=== PATIENT | female | born 1980 | race Caucasian/White ===

== ENCOUNTER → 2018-02-16 | Outpatient (CLI) | payer OTHER ==
[~2018-02-16] MED LIST: TIZA2CAP7 PO
== END ==
LOC: LAB 13:27
PROVIDERS: ATTEND Student in an Organized Health Care Education/Training Program
DX: R53.83 Other fatigue (principal)
CPT/HCPCS: 36415; 84443

== ENCOUNTER → 2018-04-09 | Outpatient (CLI) | payer OTHER ==
[~2018-04-09] MED LIST changes: +NORE-7 PO
== END ==
LOC: LAB 10:21
PROVIDERS: ATTEND Psychiatry & Neurology Neurology
DX: R20.8 Other disturbances of skin sensation (principal); R53.82 Chronic fatigue, unspecified
CPT/HCPCS: 36415; 82306; 82607; 83036; 84436; 84439; 84443; 84480; 84481

== ENCOUNTER → 2018-04-12 | Outpatient (CLI) | payer OTHER | LOC: RESP 15:06 | PROVIDERS: ATTEND Psychiatry & Neurology Neurology | DX: G47.30 Sleep apnea, unspecified (principal) ==

== ENCOUNTER → 2018-05-12 | Outpatient (CLI) | payer OTHER ==
[~2018-05-12] MED LIST changes: +FLU60VIA41 IM
== END ==
LOC: LAB 10:25
PROVIDERS: ATTEND Student in an Organized Health Care Education/Training Program
DX: N83.9 Noninflammatory disorder of ovary, fallopian tube and broad ligament, unspecified (principal)
CPT/HCPCS: 36415; 86304

== ENCOUNTER 2018-07-21 00:34 | Observation (INO) | payer OTHER ==
[~2018-07-21] VITALS: Ht 167.6 cm; Wt 61.7 kg
[2018-07-21] VITALS (14 sets, daily range): BP systolic 109–127; BP diastolic 71–89
[~2018-07-21 00:34] MED LIST changes: +CHOL10005 PO; +DICL-190 PO; +DIPH-740 PO
[2018-07-21] MEDS ORDERED: NORMOSOL R SOLN(*) 1000 ML BAG 1,000 ML IV PRN (06:30)
[2018-07-21] MEDS ORDERED: FAMOTIDINE 20 MG TAB PO ONE (06:30)
[2018-07-21] MEDS ORDERED: MIDAZOLAM 2 MG/2 ML VIAL IVP PRN (06:30)
[2018-07-21] MEDS ORDERED: LIDOCAINE/SOD BICARB 8.4% SYR ID ONE (06:30)
[2018-07-21] MEDS ORDERED: ceFAZolin(*) 1 GM VIAL 1 GM in NS(*) 0.9% 100 ML ADDVANT BAG 100 ML IVPB ONE (08:50)
[2018-07-21 09:02] LABS: PLATELET COUNT, AUTOMATED 259 K/uL (150-450)
[2018-07-21] MEDS ORDERED: BUPIV/EPI 0.25% 1:200,000 50ML INFIL ONE (09:32)
[2018-07-21] MEDS ORDERED: ROCURONIUM BROM 10 MG/ML 10 ML ONE (09:33)
[2018-07-21] MEDS ORDERED: KETOROLAC 30 MG/ML VIAL ONE (09:33)
[2018-07-21] MEDS ORDERED: ONDANSETRON 4 MG/2 ML VIAL ONE (09:33)
[2018-07-21] MEDS ORDERED: PROPOFOL EMUL(*) 10MG/ML 20 ML 40 ML ONE (09:33)
[2018-07-21] MEDS ORDERED: DEXAMETHASONE SOD PHOS 10MG/ML ONE (09:33)
--- NOTE | 2018-07-21 09:39 | History & Physical ---
History of Present Illness Age of Patient: 38 : 2 Para or TPAL: 2 Chief Complaint Vaginal Prolapse History of Present Illness Pt is a 38 y/o who presented to clinic with a chief complaint of a vaginal bulge. Pt reports that while wiping she noted she felt a bump that she hadn't noted before. Pt looked in the mirror and saw the bump as well. Pt reports that doing kegel exercise have improved symptoms. Reports that she has been having very irregular cycles lately that are lasting 16-24 days with bleeding. Pt was told a few years ago by her location man prior to her moving her that she did have a fibroid the size of a lemon. She reports that she has no vaginal pressure. Denies any urinary incontinence. History Obstetrical History: X 2 Past Medical History: Migraines Allergies: Coded Allergies: latex (Unverified Allergy, Mild, 02/10/18) sensitivity Social History: Denies X 3. Cavazos Family History: FH: cancer MGM GRANDFATHER FH: hypertension GRANDFATHER Med Rec Home Meds Active Scripts Noreth A-Et Estra/Fe Fumarate (LO LOESTRIN FE 1-10 TABLET) 1 Each Tablet, 1 EACH PO DAILY for 90 Days, #3 PACKET 4 Refills Prov:MARGIE FIERRO DO 03/22/18 Tizanidine Hcl (ZANAFLEX) 2 Mg Capsule, 2 MG PO QDAY for 30 Days, #30 CAPSULE 3 Refills Prov:MARGIE FIERRO DO 02/10/18 Reported Medications Cholecalciferol (Vitamin D3) (VITAMIN D3) 1,000 Unit Tablet, 2000 UNIT PO QDAY, TAB 07/07/18 Diphenhydramine Hcl (BENADRYL) 25 Mg Capsule, 25 MG PO HS, CAPSULE 07/07/18 Diclofenac Potassium (DICLOFENAC POTASSIUM) 50 Mg Tablet, 50 MG PO TID PRN for PAIN/HEADACHE, TAB 07/07/18 Review of Systems All Systems Reviewed/Normal: Yes, Except as Noted Neurological: No Syncope, No Confusion, No Weakness, No Dizziness, No Slurred Speech, No Other Eyes: No Vision Change, No Loss of Vision, No Photophobia, No Other ENT: No Hearing Loss, No Sinus Congestion, No Sore Throat, No Ear Ache, No Tinnitus, No Other Cardiovascular: No Chest Pain, No Palpitations, No Orthostatic Hypotension, No Other Respiratory: No Shortness of Breath, No Cough, No Wheezing, No Other Gastrointestinal: No Nausea, No Vomiting, No Diarrhea, No Dysphagia, No Constip ation, No Early Satiety, No Hematemesis, No Hematochezia, No Melena, No Abdominal Pain, No Other Genitourinary: No Dysuria, No Hematuria, No Urinary Incontinence, No Other Musculoskeletal: No Pain, No Sprain, No Strain, No Impaired Mobility, No Other Psychiatric: No Depression, No Anxiety, No Other Exam General Exam General Apperance: Alert/Awake/No Acute Distress Neuro: No Gross deficits Eyes: Normal Extraocular Movement & Vison ENT: Normal Cardiovascular: Regular Rate and Rhythm Abdomen: Soft, Non-Tender, Non-Distended, Other (mass palpated in around uterus. Ultrasound revealed probable pedunculated fibroid. ) : Normal Musculoskeletal: No Weakness/Pain Extremities: No Cyanosis,Clubbing or Edema Integumentary: Skin Intact without Lesions or Rash Psychological: Alert & Oriented X3, Appropriate Mood & Affect Medical Decision Making Data Points Result Diagram: 07/21/18 0851 Pre-Admit Course Medical Record Review: Yes VTE Prophylasis: Adult Deep Vein Thrombosis/Pulmonary: No Assessment and Plan LEASE EXAMINER Assessment: Stable LEASE EXAMINER Plan: Routine Post-Op Care Problems: (1) Fibroid uterus Assessment & Plan: Pt desires to proceed with definitive surgical procedure. Will proceed with Hysterectomy with Salpingectomy. CA-125 was drawn in the event this may be ovarian in nature and was normal. Pt to proceed with RTLH with BS possible oophorectomy MARGIE FIERRO DO Jul 21, 2018 09:39
[2018-07-21] MEDS ORDERED: HYDROmorphone HCL 2 MG/ML SDV ONE (10:27)
[2018-07-21] MEDS ORDERED: SUGAMMADEX SOD 200 MG/2 ML SDV ONE (12:30)
[2018-07-21] MEDS ORDERED: fentaNYL CITR 100 MCG/2 ML AMP ONE (13:18)
[2018-07-21] MEDS ORDERED: PROMETHAZINE 25 MG/ML 1 ML AMP IVP PRN (13:50)
[2018-07-21] MEDS ORDERED: SIMETHICONE 80 MG CHEW CHEW PRN (13:50)
[2018-07-21] MEDS ORDERED: ONDANSETRON 4 MG/2 ML VIAL IVP PRN (13:50)
[2018-07-21] MEDS ORDERED: oxyCODONE HCL 5 MG CAP PO PRN (13:50)
--- NOTE | 2018-07-21 14:55 | Post Operative Note ---
Operative Note - [facility]PA[facility]ER Operative Day Date: Jul 21, 2018 Time: 14:36 Physicians Surgeon: Margie Baltazar Certified Medical Coding Specialist: Olinda Barros Anesthesia: GET 1/4% Marcaine with Epi Diagnosis Pre-Op Diagnosis: 38 y/o Uterine Fibroid Pelvic Mass Post-Op Diagnosis: Same Adnexal mass (suspect teratoma) Procedure Findings: Uterus 8 week size with anterior fibroid approximately 6X5X3 cm. Left ovary 6-8 cm with large cyst. Normal fallopian tubes bilaterally. Smooth liver. Normal appearing Galbladder. Procedure(s): RATLH with Bilateral salpingectomy, left oopherectomy, cystoscopy Specimen Removed:(Maybe N/A): Uterus, bilateral fallopian tubes, left ovary Complications: 0 known Fluids Fluids: 1300 u/o 400 Estimated Blood Loss: 50 Dictated Date OP Note Dictated: Jul 21, 2018 Time OP Note Dictated: 14:55 MARGIE BALTAZAR DO Jul 21, 2018 14:55
[2018-07-21] MEDS ORDERED: ACETAMINOPHEN 325 MG TAB PO SCH (15:00)
[2018-07-21] MEDS: KETOROLAC 30 MG/ML VIAL IVP SCH ×2 (15:28→21:08)
[2018-07-21] MEDS: MORPHINE 2 MG/ML SYR IVP PRN ×3 (16:54→23:45)
[2018-07-21] MEDS: DLR(*) 1000 ML BAG 1,000 ML IV PRN ×2 (16:55→23:46)
--- NOTE | 2018-07-21 17:04 | OPERATIVE REPORT 1 ---
EVENT DATE: July 21, 2018 SURGEON: Mohan Baltazar DO ANESTHESIOLOGIST: Patrick Nowak MD ANESTHESIA: General endotracheal intubation with 0.25% Marcaine with Epinephrine for local anesthesia only. FENDER MECHANIC: Olinda Barros MD PREOPERATIVE DIAGNOSIS 1. 38-year-old 2, para 2. 2. Uterine fibroid. 3. Pelvic mass. POSTOPERATIVE DIAGNOSIS 1. 38-year-old 2, para 2. 2. Uterine fibroid. 3. Pelvic mass. 4. Adnexal mass. PROCEDURE PERFORMED Robot assisted total laparoscopic hysterectomy with bilateral salpingectomy, left oophorectomy, and cystoscopy. FINDINGS The uterus 8 weeks size with an anterior fibroid approximately 6 x 5 x 3 cm. Left ovary 6-8 cm with large cyst noted. Normal fallopian tubes bilaterally. Smooth liver and normal appearing gallbladder. ESTIMATED BLOOD LOSS 50 cc. URINE OUTPUT 400 cc. IV FLUIDS 1300 cc Lactated ringers. SPECIMENS Uterus, bilateral fallopian tubes, and left ovary. COMPLICATIONS None known. CONDITION Stable to PACU and then to the floor. COUNTS Correct for all needles, lap, sponge, and instruments. INDICATION AND CONSENT The patient is a 38-year-old 2, para 2 who presented to clinic with a complaint of a vaginal bulge. She was noted to have what appeared to be a uterine fibroid with minimal descent of the uterus on physical exam. Ultrasound revealed what appeared to be a pedunculated fibroid as well as an anterior mass on the uterus. The patient initially wanted to proceed with surgical management just to include a myomectomy and possible oophorectomy but later changed to go proceed with definitive surgical management to include hysterectomy and oophorectomy as needed. The patient signed the appropriate consents. She was taken to the operating room after consents were signed. DESCRIPTION OF PROCEDURE The patient was taken to the operating room and where she was placed in the dorsal supine position. She then underwent general endotracheal intubation. She then was placed in the dorsal lithotomy position. She was prepped and draped in the usual sterile manner. A weighted speculum was placed in the vagina. The cervix was visualized, grasped with an Allis clamp. 7 Hegar was easily placed through the cervix. A 0 Vicryl was placed from outside of the cervix through the internal os to help with maintaining the VCare uterine manipulator. The VCare uterine manipulator was placed through the cervix into the uterus. The balloon was insufflated and the uterine manipulator was tied to the cervical cup. At this point, the Whittington catheter was placed. The bladder was drained. The legs were placed in low lithotomy position and attention was turned to the abdomen. Pneumoperitoneum was achieved with the Veress needle going through the umbilicus. An 8 mm incision was then created just 5 cm above the belly button. Trocar was placed under direct laparoscopic visualization. The area of entry with the Veress and the trocar were inspected and found to be without any injury. Additional trocars were placed in the same line as the midline trocar using 8 mm incisions. With all the trocars placed, under laparoscopic visualization the robot was docked. With the robot docked, the surgical instruments were then placed and attention was then turned to the hysterectomy. The right fallopian tube was grasped. It was cauterized using a vessel sealer. The mesosalpinx was cauterized all the way to the cornua of the uterus. With the mesosalpinx cauterized, the right uteroovarian ligament was cauterized and transected. The broad ligament was entered after the round ligament was cauterized and transected. An anterior leaf was created paying special attention to get around the anterior fibroid to insure we were clear of any vasculature or ureter on that side. With the anterior leaf created, the posterior leaf was also created with laparoscopic Endoshears and monopolar cautery. Attention was then turned to the left ovary. It was noted to be significant enlarged. The left fallopian tube was dissected off the left ovary with the vessel sealer. The mesosalpinx was cauterized and transected all the way to the level of the uterine cornua with the vessel sealer. At this point, the uteroovarian ligament was cauterized and transected with the vessel sealer. The broad ligament was entered. The anterior leaf was created and met the other leaf that was already created. The posterior leaf was also created. At this point, the left uterine artery was visualized. It was cauterized multiple times with the vessel sealer and transected. The broad and cardinal ligaments were easily transected off and dissected using the vessel sealer all the way down to the level of the uterosacral ligament. At this point, attention was then turned to the left aspect of the uterus. The uterine artery was easily visualized. It was grasped with the vessel sealer and cauterized multiple times. Once the uterine artery was transected, the broad and cardinal ligaments were cauterized and transected all the way down to the level of the uterosacral ligament. At this point, the colpotomy was performed using the laparoscopic carolina with monopolar cautery in a circumferential manner visualizing the Junk4Junk uterine manipulator green cup. This was done circumferentially in its entirety until the entire green cup was visualized. With the green cup visualized, the uterus was removed through the vagina. A wound grenade was placed inside the vagina to help with pneumoperitoneum. The cuff was then closed with a 2-0 V-Loc in a running manner. The cuff was inspected and found to be hemostatic. The ureters were visualized bilaterally. Attention was then turned to the left ovary. The left ovary did fill the better part of the pelvic space and because of the size of the mass, I was concerned for the possibility of how easy it would be for this ovary to torse. Because of this, it was decided to proceed with cystectomy. Once cystectomy was started, we quickly visualized sebum from the cyst which was consistent with a teratoma. Because of it being a teratoma and the concern for sebum spilling in the abdomen and peritonitis, it was stopped and attention was then turned to performing an oophorectomy. With the infundibulopelvic ligament visualized and the ureter noted to be posterior and significantly underneath the IP ligament, at the site of transection, the vessel sealer was then used to cauterize the IP ligament and the ovary was removed. The ovary was then placed in an endobag and brought through the abdomen without any abdominal spillage noted. The trocar site that had the endobag in it was then closed with a Ezequiel-Breana using a 0 Vicryl. This was performed under laparoscopic visualization. The peritoneum and facial edges were easily brought together with the Ezequiel-Breana. At this point, the pneumoperitoneum was released. Attention was then turned to closing the trocar sites. The trocar sites were closed with a 4-0 Monocryl and had Dermabond placed over the incision. Cystoscopy: With the patient in lithotomy position, the cystoscope was placed inside the urethra and the urethra was insufflated with normal saline. The dome in the bladder and the trigone in the bladder were inspected and noted to be without any injury or suture. Bilateral ureteral jets were noted on cystoscopy. The bladder was drained and the patient had a Whittington catheter placed back inside the bladder. She was then cleaned and awaken and transferred to the recovery room in stable condition. TYLOR
[2018-07-21] MEDS ORDERED: ZOLPIDEM TARTRATE 10 MG TAB PO PRN (21:00)
[2018-07-21] MEDS: FAMOTIDINE 20 MG TAB PO SCH (21:08)
[2018-07-21] MEDS: DOCUSATE CALCIUM 240 MG CAP PO SCH (21:08)
[2018-07-21] MEDS: ACETAMINOPHEN 325 MG TAB PO SCH (21:45)
[2018-07-22 03:20] VITALS: BP 119/79
[2018-07-22] MEDS: KETOROLAC 30 MG/ML VIAL IVP SCH (03:29)
[2018-07-22] MEDS: ACETAMINOPHEN 325 MG TAB PO SCH ×2 (03:29→10:00)
[2018-07-22 06:33] LABS: PLATELET COUNT, AUTOMATED 262 K/uL (150-450)
[2018-07-22] MEDS ORDERED: PROM12.556 PO (08:23)
[2018-07-22] MEDS ORDERED: HYDR-653 PO (08:23)
[2018-07-22] MEDS ORDERED: IBUP800T37 PO (08:23)
[2018-07-22] MEDS: DOCUSATE CALCIUM 240 MG CAP PO SCH (08:53)
[2018-07-22] MEDS: FAMOTIDINE 20 MG TAB PO SCH (08:53)
[2018-07-22 09:00] VITALS: BP 120/86
[2018-07-22] MEDS ORDERED: IBUPROFEN 800 MG TAB PO SCH (09:00)
[2018-07-22] MEDS ORDERED: APAP/HYDROCODONE 325/5 TAB PO PRN (09:10)
[2018-07-22 09:39] VITALS: Ht 167.6 cm; Wt 61.7 kg
[2018-07-22] MEDS ORDERED: TIZA2CAP3 PO (10:17)
[2018-07-22] MEDS ORDERED: INFLUENZA VIRUS VAC 0.5ML SYR IM ONLY ONE (13:50)
--- NOTE | 2018-07-22 17:00 | OB/GYN Discharge Summary ---
Discharge Summary Reason for Hosp/Final Diag: (1) Fibroid uterus Hospital Course & Plan: 32 sexual who presented to clinic for a robotic- assisted total epistatic hysterectomy with possible oophorectomy and bilateral subjective a. Patient underwent procedure without any difficulties please refer to operative report for details of procedure area patient remained in the hospital for 1 day postoperative for pain control. Patient had her catheter removed on the same day of her procedure and was ambulatory and voiding without difficulties. Lates Vital Signs Vital Signs Date Time Temp Pulse Resp B/P (MAP) Pulse Ox O2 Delivery O2 Flow Rate FiO2 07/22/18 09:00 98.4 84 16 120/86 (97) 97 Room Air 07/21/18 15:30 0.5 Weight (Pounds): 136 Result Diagram: 07/22/18614 Condition: Improved Discharge: Home Home Meds Active Scripts Promethazine Hcl (PROMETHAZINE HCL) 12.5 Mg Tablet, 12.5 MG PO Q6H for Nausea, #20 TAB 1 Refill Prov:MARGIE FIERRO DO 07/22/18 Ibuprofen (IBUPROFEN) 800 Mg Tablet, 800 MG PO Q8H, #20 TAB 0 Refills Prov:MARGIE FIERRO DO 07/22/18 Hydrocodone Bit/Acetaminophen (NORCO 5-325 TABLET) 1 Each Tablet, 1-2 EACH PO Q6H, #30 TAB 0 Refills Prov:MARGIE FIERRO DO 07/22/18 Noreth A-Et Estra/Fe Fumarate (LO LOESTRIN FE 1-10 TABLET) 1 Each Tablet, 1 EACH PO DAILY for 90 Days, #3 PACKET 4 Refills Prov:MARGIE FIERRO DO 03/22/18 Reported Medications Tizanidine Hcl (TIZANIDINE HCL) 2 Mg Capsule, 2 MG PO PRN, CAPSULE 07/22/18 Cholecalciferol (Vitamin D3) (VITAMIN D3) 1,000 Unit Tablet, 2000 UNIT PO QDAY, TAB 07/07/18 Diphenhydramine Hcl (BENADRYL) 25 Mg Capsule, 25 MG PO HS, CAPSULE 07/07/18 Diclofenac Potassium (DICLOFENAC POTASSIUM) 50 Mg Tablet, 50 MG PO TID PRN for PAIN/HEADACHE, TAB 07/07/18 Discontinued Scripts Tizanidine Hcl (ZANAFLEX) 2 Mg Capsule, 2 MG PO QDAY for 30 Days, #30 CAPSULE 3 Refills Prov:SRIMARGIE SIMMONS 02/10/18 Follow up with: [facility] [place] [phone], Dr. Fierro [phone] Follow up in: 6 wks PP or PO, 2 wks PO Discharge Diet: As Tolerates Discharge Activity: No Heavy Lifting > 10lb, Pelvic Rest Special Instructions: follow up with Dr Fierro in two weeks. Problem Qualifiers (1) Fibroid uterus: Uterine leiomyoma location: subserous Qualified Codes: D25.2 - Subserosal leiomyoma of uterus MARGIE FIERRO DO Jul 22, 2018 17:00
--- NOTE | 2018-07-22 17:06 | OB/GYN Progress Note ---
OB Subjective Progress Notes Subjective Late entry: Doing at this morning. Reports some nausea and vomiting overnight. Reports minimal vaginal bleeding. Did have some difficulty urinating immediate after having catheter removed but this has since passed. Pain controlled with by mouth pain medications. GI: NEG Nausea, NEG Vomiting, NEG Flatus, NEG Bowel Movement : Voiding Well, Vaginal Bleeding, Scant Pain: Mild, Comfortable, Tolerating PO Pain Meds Neurological: No Headache, No Other Eyes: No Visual Disturbances OB Objective Physical Exam Vital Signs Date Time Temp Pulse Resp B/P (MAP) Pulse Ox O2 Delivery O2 Flow Rate FiO2 07/22/18 09:00 98.4 84 16 120/86 (97) 97 Room Air 07/21/18 15:30 0.5 Intake and Output 07/22/18 07:00 Intake Total 3200 ml Output Total 3665 ml Balance -465 ml IV Total 3200 ml Output Urine Total 3215 ml Emesis 400 ml Estimated Blood Loss 50 ml # Voids 7 # Emeses 3 General Appearance: Alert/Awake/No Acute Distress Neurological: No Gross deficits Eyes: Normal Extraocular Movement & Vison Cardiovascular: Normal Rhythm & Peripheral Pulses Respiratory: No Respiratory Distress, Clear to Auscultation Abdomen: Soft, Non-Tender, Non-Distended Incision: Clean, Dry, Intact, Dermabond Extremities: No Cyanosis,Clubbing or Edema Integumentary: Skin Intact without Lesions or Rash Psychological: Alert & Oriented X3, Appropriate Mood & Affect Result Diagram: 07/22/18 0615 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 Patient needs to tolerate by mouth intake with no nausea. Patient is arty ambulatory voiding spontaneously discharge once met early goals. Problem Qualifiers (1) Fibroid uterus: Uterine leiomyoma location: subserous Qualified Codes: D25.2 - Subserosal leiomyoma of uterus MARGIE FIERRO DO Jul 22, 2018 17:06
== END 2018-07-22 09:11 | disposition home or self-care (01) ==
LOC: OR 00:34 → PED 14:15
PROVIDERS: ADMIT Student in an Organized Health Care Education/Training Program; ATTEND Student in an Organized Health Care Education/Training Program
DX: D27.1 Benign neoplasm of left ovary (principal)
CPT/HCPCS: 36415; 58571; 84703; 85025; 88307; G0378; J0690; J1100; J1170; J1885; J2250; J2270; J2405; J2550; J2704; J3010; J3490; J7050; S2900

== ENCOUNTER 2018-10-18 14:21 | Emergency (ER) | payer OTHER ==
[2018-07-22 09:39] VITALS: Wt 63.5 kg
[~2018-10-18 14:21] MED LIST changes: +HYDR-653 PO; +IBUP800T37 PO; +PROM12.556 PO; +TIZA2CAP3 PO
[2018-10-18] MEDS ORDERED: methylPREDNIS SUC* 1000 MG/8ML 1,000 MG in NS(*) 0.9% 250 ML BAG 250 ML IVPB ONE (14:30)
[2018-10-18] MEDS ORDERED: VALPROATE SOD 100 MG/ML VIAL 1,000 MG in NS(*) 0.9% 100 ML BAG 100 ML IVPB ONE (14:30)
--- NOTE | 2018-10-18 14:30 | ER Report ---
History and Physical Time Seen By MD: 14:30 HPI/ROS CHIEF COMPLAINT: Migraine HISTORY OF PRESENT ILLNESS: 38-year-old female patient presents to emergency room with complaint of migraine. Patient states that she has had a migraine for the past 3 days. She states that she gets migraines fairly frequently. She is seeing a neurologist in [place]. Neurologist wants her to receive 1 g of Depakote and 1 g of Solu-Medrol with intractable migraines. She states that she has been taking diclofenac with no improvement. She denies any vomiting but states she has been nauseated. Patient states that medications typically help, however they've not been able to be helpful today she is taken up to 3 doses today and 4 doses yesterday. She is only allowed to take 4 doses in a 24-hour period. Patient is not allowed to take triptans for her headaches. REVIEW OF SYSTEMS: Respiratory: No cough, no dyspnea. Cardiovascular: No chest pain, no palpitations. Gastrointestinal: As noted above. Musculoskeletal: No back pain. Allergies: Coded Allergies: latex (Unverified Allergy, Mild, 02/10/18) sensitivity Home Meds Active Scripts Noreth A-Et Estra/Fe Fumarate (LO LOESTRIN FE 1-10 TABLET) 1 Each Tablet, 1 EACH PO DAILY for 90 Days, #3 PACKET 4 Refills Prov:MARGIE FIERRO DO 03/22/18 Reported Medications Diclofenac Potassium (DICLOFENAC POTASSIUM) 50 Mg Tablet, 50 MG PO TID PRN for PAIN/HEADACHE, TAB 07/07/18 Discontinued Scripts Tizanidine Hcl (TIZANIDINE HCL) 2 Mg Capsule, 2 MG PO DAILY, #30 CAPSULE 3 Refills Prov:MARGIE FIERRO DO 09/09/18 Past Medical/Surgical History Patient has a past medical history of migraines, gluten intolerance, lactose intolerance, anxiety. Patient has no pertinent surgical history. Reviewed Nurses Notes: Yes Smoking Status: Never Smoker Constitutional Vital Sign - Last 24 Hours 10/18/18 10/18/18 10/18/18 10/18/18 14:26 14:29 14:51 15:21 Temp 97.9 Pulse 78 76 73 Resp 20 B/P (MAP) 148/97 (114) 148/97 Pulse Ox 94 98 97 O2 Delivery Room Air 10/18/18 10/18/18 10/18/18 10/18/18 15:51 15:56 16:26 16:30 Pulse 72 79 80 B/P (MAP) 114/82 (93) Pulse Ox 97 99 96 10/18/18 10/18/18 10/18/18 10/18/18 16:56 17:01 17:26 18:00 Pulse ??? 95 88 B/P (MAP) 112/82 (92) ???/??? (1665) Pulse Ox 95 94 10/18/18 10/18/18 10/18/18 10/18/18 18:05 18:08 18:10 18:10 Pulse 92 89 93 Resp 18 B/P (MAP) 117/89 (98) 117/89 (98) Pulse Ox 95 95 94 O2 Delivery Room Air Physical Exam General Appearance: The patient is alert, has no immediate need for airway protection and no current signs of toxicity. Respiratory: Chest is non tender, lungs are clear to auscultation. Cardiac: regular rate and rhythm Gastrointestinal: Abdomen is soft and non tender, no masses, bowel sounds normal. Musculoskeletal: Neck: Neck is supple and non tender. Extremities have full range of motion and are non tender. Skin: No rashes or lesions. Neuro: Cranial nerves II through XII grossly intact. DIFFERENTIAL DIAGNOSIS: After history and physical exam differential diagnosis was considered for headache including but not limited to subarachnoid hemorrhage, migraine headache, tension headache and infectious causes such as meningitis, pharyngitis and sinusitis. Medical Decision Making ED Course/Re-evaluation ED Course Patient was admitted to an exam room, history and physical were obtained. Differential diagnoses were considered. On examination lungs are clear, heart is regular, abdomen is soft and nontender. Neurologically the patient was alert and oriented 4, cranial nerves II through XII grossly intact. Patient did bring an order form from her neurologist requesting that she receive 1 g of Depacon and 1 g of Solu-Medrol for intractable headaches. 30 minutes after the patient had received the final infusion of the Depacon I reevaluated the patient. Patient states that she was having pain that she rated a 3 out of 10. Her pain initially started off as an 8 out of 10. Patient states that her headache feels like her headaches normally do at the onset of her headaches. Patient had taken 3 doses of diclofenac today. That is down from before that she taken yesterday. We did go ahead and give her 15 mg of Toradol IV. She states there was no improvement in the pain, however she said that the headache is now tolerable. She feels comfortable going home. We will discharge her home at this time. She is follow- up with her neurologist as per schedule. She is return to emergency room if condition worsens. Patient verbalized understanding and agreement with plan. Decision to Disposition Date: Oct 18, 2018 Decision to Disposition Time: 18:07 Depart Departure Latest Vital Signs Vital Signs Date Time Temp Pulse Resp B/P (MAP) Pulse Ox O2 Delivery O2 Flow Rate FiO2 10/18/18 18:10 93 94 10/18/18 18:10 18 117/89 (98) Room Air 10/18/18 14:29 97.9 Impression: Primary Impression: Migraine Condition: Improved Disposition: HOME OR SELF-CARE Referrals: MARGIE FIERRO DO (PCP) Patient Instructions: Migraine Headache (ED) Additional Instructions: Increase fluid intake. Get plenty of rest. Follow up with your neurologist as scheduled. Return to the ER if condition worsens. Continue with your headache regimen as needed. Problem Qualifiers Primary Impression: Migraine Migraine type: without aura Status migrainosus presence: without status migrainosus Intractability: not intractable Qualified Codes: G43.009 - Migraine without aura, not intractable, without status migrainosus MARY FRANK Oct 18, 2018 14:30
[2018-10-18] MEDS ORDERED: ONDANSETRON 4 MG/2 ML VIAL IVP ONE (15:50)
[2018-10-18] MEDS ORDERED: KETOROLAC 15 MG/ML VIAL IVP ONE (17:30)
[2018-10-18 18:10] VITALS: BP 117/89
== END 2018-10-18 18:21 | disposition home or self-care (01) ==
LOC: ER 14:37
DX: G43.009 Migraine without aura, not intractable, without status migrainosus (principal)
CPT/HCPCS: 96365; 96367; 96375; 99284; J1885; J2405; J2930; J7050